=== PATIENT | female | born 1955 | race Caucasian/White ===

== ENCOUNTER 2023-04-25 15:02 | Emergency (ER) | payer BC, SELFPAY ==
[2023-04-25 15:05] VITALS: BP 179/87; PULSE 53; RESP 16; TEMP 36.6; O2SAT 99
--- NOTE | 2023-04-25 15:15 | ED_ITS ---
HPI - General Adult General Chief complaint: Fall/Minor Trauma Stated complaint: Fall Time Seen by Provider: 04/25/23 15:11 History of Present Illness HPI narrative: Pt here following a mechanical fall . May have missed a step or tripped on shoelaces. Pt may have hit the L side of her head, but believes primary impact was her L arm. Was able to ambulate after the fall, but then sat down and had a syncopal episode that was witnessed. Hx of htn. Did not take her lisinopril. 67-year-old woman presenting to the emergency department following a fall. Was apparently trying to exit a dark auditorium when trip somehow falling into the wall. Was exiting on the left side of the auditorium striking the left neck somehow hyper flexing it I think to the right. What hurts most probably is the left forearm twice she scraped against something. The wall was padded. She fee ls that her head took the least of the impact. Probably mostly her arm and left shoulder area. She is also scraped/injured/landed on her left knee. Has been able to ambulate since. Upon this fall she did lose consciousness it sounds like for maybe a second. No nausea. She 1st tells me ?I'm a mess?. In town for [facility]. She has not taking any anticoagulants. No back pain. She mentions that she thinks her neck is hurting in the area of the sternocleidomastoid. No shortness of breath no abdominal pain. Related Data Allergies Allergy/AdvReac Type Severity Reaction Status Date / Time Cephalosporins Allergy Mild Verified 04/25/23 15:11 morphine Allergy Mild Verified 04/25/23 15:11 Penicillins Allergy Mild Verified 04/25/23 15:11 Review of Systems Status of ROS: Reports: 6 or more systems reviewed and unremarkable except as noted in History and below [facility] Social History Smoking Status: Never smoker Do you use any of these nicotine containing products: None Second hand tobacco smoke exposure: No How often do you have a drink containing alcohol: monthly or less How many standard drinks containing alcohol do you have on a typical day: 1 or 2 AUDIT-C Alcohol total score: 1 Non-prescribed substance use: denies use Exam Narrative: Exam Narrative: Has been tearful. Pleasant. Skin is warm and dry. There is light not losing nonbleeding abrasion at the left mid forearm. Does not have pain to stressors of the bone in this area just to direct palpation. Opens and closes hand without apparent difficulty. She has some limitation she says to her right shoulder but she is able to raise both arms up overhead. No pain to palpation about the left shoulder or bilateral clavicles. She has no midline pain to palpation of the back. Chest with equal rise. Lungs appear to be clear. Neck without midline tenderness. She is quite sore to palpation in the left upper paracervical musculature noting that she does also have cervical arthritis. Negative Flaherty sign. No fluid external ear canals. Cranial nerves 2-12 intact. Lower extremities with some superficial venous varicosities. She has light abrasion without effusion or pain with flexion or extension at the left knee. Const: Vital Signs, click to edit/add: Vital Signs - 24 hr 04/25/23 15:05 Temperature 97.9 F Pulse Rate [Right Pulse Oximeter] 53 L Respiratory Rate 16 Blood Pressure [Le ft Upper Arm] 179/87 H Pulse Oximetry 99 Oxygen Delivery Me thod Room Air Documenting provider has reviewed patient's vital signs: yes Course Vital Signs Vital signs: Initial Vital Signs Temperature 97.9 F 04/25/23 15:05 Temperature Source Temporal Artery Scan 04/25/23 15:05 Pulse Rate 53 L 04/25/23 15:05 Pulse Rhythm Regular 04/25/23 15:05 Pulse Strength 3+ Normal 04/25/23 15:05 Respiratory Rate 16 04/25/23 15:05 Blood Pressure 179/87 H 04/25/23 15:05 Blood Pressure Mean 117 H 04/25/23 15:05 Blood Pressure Position Supine 04/25/23 15:05 Pulse Oximetry 99 04/25/23 15:05 Oxygen Delivery Method Room Air 04/25/23 15:05 Vital Signs Temperature 97.9 F 04/25/23 15:05 Pulse Rate 53 L 04/25/23 15:05 Respiratory Rate 16 04/25/23 15:05 Blood Pressure 179/87 H 04/25/23 15:05 Pulse Oximetry 99 04/25/23 15:05 Oxygen Delivery Method Room Air 04/25/23 15:05 Temperature 97.9 F 04/25/23 15:05 Pulse Rate 53 L 04/25/23 15:05 Respiratory Rate 16 04/25/23 15:05 Blood Pressure 179/87 H 04/25/23 15:05 Pulse Oximetry 99 04/25/23 15:05 Oxygen Delivery Method Room Air 04/25/23 15:05 Medical Decision Making MDM Narrative Medical decision making narrative: Warrants imaging I think at least of the neck. Sounds like mild if any injury to the head and I suspect syncopal event was more of a stress response possibly vasovagal. I do not believe forearm needs imaging for bony injury or the knee. Does not feel she needs anything for pain. Wrapped up left forearm again with gauze and feels better. Otherwise will supply with an ice pack. I did request CT scan of cervical spine in the setting of trauma. I did review images however radiology over-read as below Findings: Straightening of the normal cervical lordosis. No significant spondylolisthesis. No evidence of acute fracture. Craniocervical articulation appears within normal limits. Scattered spondylosis, with shallow degenerative disc changes, as well as multilevel uncovertebral and facet arthropathy. This contributes to moderate spinal canal stenosis at C5-6, and mild spinal canal narrowing at C4-5. There are multilevel neural foraminal stenoses, ranging from moderate to severe on the left at C3-4 and C4-5, right at C5-6, milder elsewhere. No suspicious findings identified within the paraspinal soft tissues. Approximately 5 mm ground-glass nodule at the left lung apex. No pneumothorax identified. Impression: 1. No CT evidence of acute fracture or traumatic malalignment in the cervical spine. 2. Cervical spondylosis, with likely moderate C5-6 spinal canal stenosis, and multilevel neuroforaminal stenoses as detailed. 3. Approximately 5 mm ground-glass nodule at the left lung apex. I discussed findings in this imaging. Arthropathy not surprising per her report. Also considering nodule, reports having had what sounds like latent/TB. Dispensed a soft cervical collar. She did feel like this helped her neck/shoulders relax. Improved. See patient discharge plan Discharge Plan Discharge Clinical Impression: Acute neck sprain, Contusion, Abrasion, Pulmonary nodule Patient Disposition: Home w/ Parent or Adult Condition: Improved Additional Instructions: I would ice these areas that hurt 2-3 times daily over the next few days. Ibuprofen or naproxen for pain. Wear the soft collar for comfort over this next week. Might benefit from some neck pull-down stretches as demonstrated a few times daily over the next few days as well. Please follow-up regarding prior evidence of this pulmonary nodule prior or if seems to be new, consider reimaging somewhere between 6-12 months Follow Up/Referrals: Elsie Rueda, SEC[employer]ITIES UNDERWRITER, SPECIAL ASSETS OFFICER [Primary Care Provider] - Stand Alone Forms: [employer] Info Instructions
--- NOTE | 2023-04-25 15:33 | CRLHL7_ITS ---
For Patients: As a result of the Century Cures Act, medical imaging exams and procedure reports are released immediately into your electronic medical record. You may view this report before your referring provider. If you have questions, please contact your health care provider. Indication: Fall, left-sided neck pain Technique: Noncontrast axial CT of the cervical spine with coronal and sagittal reformats. Comparison: No relevant comparison studies available at this institution. Findings: Straightening of the normal cervical lordosis. No significant spondylolisthesis. No evidence of acute fracture. Craniocervical articulation appears within normal limits. Scattered spondylosis, with shallow degenerative disc changes, as well as multilevel uncovertebral and facet arthropathy. This contributes to moderate spinal canal stenosis at C5-6, and mild spinal canal narrowing at C4-5. There are multilevel neural foraminal stenoses, ranging from moderate to severe on the left at C3-4 and C4-5, right at C5-6, milder elsewhere. No suspicious findings identified within the paraspinal soft tissues. Approximately 5 mm ground-glass nodule at the left lung apex. No pneumothorax identified. Impression: 1. No CT evidence of acute fracture or traumatic malalignment in the cervical spine. 2. Cervical spondylosis, with likely moderate C5-6 spinal canal stenosis, and multilevel neuroforaminal stenoses as detailed. 3. Approximately 5 mm ground-glass nodule at the left lung apex. Please note that all CT scans at this facility use dose modulation, iterative reconstruction, and/or weight-based dosing when appropriate to reduce radiation dose to as low as reasonably achievable. Dictated by Adore Adams MD @ 04/25/2023 4:49:08 PM (Electronically Signed)
--- NOTE | 2023-04-25 17:35 | ED.NURSE ---
Neck collar applied to pt. Education provided. Pt verbalized understanding of soft collar use. Discharge information provided as well. All questions answered. Pt d/c'd with in stable condition.
== END 2023-04-25 17:31 | disposition home or self-care (01) ==
PROVIDERS: Emergency Provider Family Medicine; PCP Nurse Practitioner Family
DX: S13.9XXA Sprain of joints and ligaments of unspecified parts of neck, initial encounter (principal); S50.812A Abrasion of left forearm, initial encounter; W10.8XXA Fall (on) (from) other stairs and steps, initial encounter; R91.1 Solitary pulmonary nodule
CPT/HCPCS: 72125; 99283; 99284